=== PATIENT | male | born 1970 | race African-American/Black ===

== ENCOUNTER 2017-07-16 09:14 | Emergency (ER) | payer OTHER ==
[2017-07-16 09:26] VITALS: TEMP 98.1; BMI 26.6
[2017-07-16] MEDS ORDERED: SODIUM CHLORIDE 1,000 ML IV STA (09:42)
[2017-07-16] MEDS ORDERED: HYDROmorphone HCL CARPU-JECT 1 MG/1 ML DISP.SYRIN IVPB ONE (09:42)
[2017-07-16 09:56] LABS: BASOPHIL 1.3 % (0-2.0); EOSINOPHIL 3.1 % (0-4.5); MCH 28.3 pg (25.7-33.7); MEAN CELL VOLUME 85.7 fl (80-96); MEAN PLT VOLUME 6.7 fl (7.5-11.1); NEUTROPHILS 36.1 % (42.8-82.8); PLATELET COUNT 266 K/MM3 (134-434); RDW 13.9 % (11.9-15.9); WHITE BLOOD COUNT 4.7 K/mm3 (4.0-10.0)
[2017-07-16] MEDS ORDERED: HYDROmorphone HCL CARPU-JECT 1 MG/1 ML DISP.SYRIN ONE (10:06)
--- NOTE | 2017-07-16 10:11 | PDOC ---
History of Present Illness - General History Source: Patient Exam Limitations: No Limitations - History of Present Illness Initial Comments: 07/16/17 10:41 The patient is a 47 year old male, with a significant past medical history of Polymyositis who presents to the emergency department with worsening R flank pain for the past 2 days. Patient states reports constant, squeezing flank pain that radiates to his R axilla. Patient states his pain is exacerbated by positional changes, exertion and deep inspiration. Patient reports urinary frequency and dizziness. Patient denied taking any medications for relief and presents to the ED for further evaluation. He denies chest pain, headache or dizziness. He denies fever, chills, nausea, vomit, diarrhea or constipation. He denies dysuria, urgency or hematuria. Allergies: Naproxen Past surgical history: umbilical hernia, RIGHT HAND GANGLION CYST REMOVAL Social history: Current everyday smoker, occasional MJ use <Alondra Christianson - Last Filed: 07/16/17 12:01> - General History Source: Patient Exam Limitations: No Limitations <Paulie Bishop - Last Filed: 07/16/17 12:19> - General Chief Complaint: Pain Stated Complaint: PAIN Time Seen by Provider: 07/16/17 09:36 Past History <Alondra Christianson - Last Filed: 07/16/17 12:01> - Past Medical History Other medical history: Polymyositis - Surgical History Abdominal Surgery: Yes (UMBILICAL HERNIA) - Immunization History Immunization Up to Date: Yes - Suicide/Smoking/Psychosocial Hx Smoking Status: Yes Smoking History: Current every day smoker Number of Cigarettes Smoked Daily: 10 Information on smoking cessation initiated: No Hx Alcohol Use: No Drug/Substance Use Hx: No Substance Use Type: Marijuana <Paulie Bishop - Last Filed: 07/16/17 12:19> - Past Medical History Allergies/Adverse Reactions: Allergies Allergy/AdvReac Type Severity Reaction Status Date / Time naproxen sodium [From Aleve] Allergy Severe Swelling Verified 07/16/17 09:19 Home Medications: Ambulatory Orders Ibuprofen 800 mg PO TID #21 tablet MDD 3 11/11/16 Methocarbamol [Robaxin -] 500 mg PO BID PRN #14 tablet 07/16/17 Oxycodone HCl/Acetaminophen [Percocet 5-325 mg Tablet] 1 tab PO Q6H PRN #15 tablet MDD 4 07/16/17 Prednisone [Deltasone -] 60 mg PO DAILY #12 tablet 07/16/17 Review of Systems - Review of Systems Able to Perform ROS?: Yes Comments:: 07/16/17 10:42 GENERAL/CONSTITUTIONAL: No fever or chills. No weakness. HEAD, EYES, EARS, NOSE AND THROAT: No change in vision. No ear pain or discharge. No sore throat. CARDIOVASCULAR: No chest pain or shortness of breath. RESPIRATORY: No cough, wheezing, or hemoptysis. GASTROINTESTINAL: No nausea, vomiting, diarrhea or constipation. GENITOURINARY: +frequency. +L flank pain. No dysuria or change in urination. MUSCULOSKELETAL: No joint or muscle swelling or pain. No neck or back pain. SKIN: No rash NEUROLOGIC: No headache, vertigo, loss of consciousness, or change in strength/ sensation. ENDOCRINE: No increased thirst. No abnormal weight change. HEMATOLOGIC/LYMPHATIC: No anemia, easy bleeding, or history of blood clots. ALLERGIC/IMMUNOLOGIC: No hives or skin allergy. <Alondra Christianson - Last Filed: 07/16/17 12:01> *Physical Exam - Vital Signs Last Vital Signs Temp Pulse Resp BP Pulse Ox 98.1 F 73 15 139/95 99 07/16/17 09:21 07/16/17 09:21 07/16/17 09:21 07/16/17 09:21 07/16/17 09:21 - Physical Exam Comments: 07/16/17 10:42 GENERAL: Awake, alert, and fully oriented, in no acute distress. +uncomfortable appearing HEAD: No signs of trauma EYES: PERRLA, EOMI, sclera anicteric, conjunctiva clear ENT: Auricles normal inspection, hearing grossly normal, nares patent, oropharynx clear without exudates. Moist mucosa NECK: Normal ROM, supple, no lymphadenopathy, JVD, or masses LUNGS: Breath sounds equal, clear to auscultation bilaterally. No wheezes, and no crackles HEART: Regular rate and rhythm, normal S1 and S2, no murmurs, rubs or gallops ABDOMEN: +L CVA tenderness. +LLQ tenderness. Soft, nontender, normoactive bowel sounds. No guarding, no rebound. No masses EXTREMITIES: Normal range of motion, no edema. No clubbing or cyanosis. No cords, erythema, or tenderness NEUROLOGICAL: Cranial nerves II through XII grossly intact. Normal speech, normal gait SKIN: Warm, Dry, normal turgor, no rashes or lesions noted. <Alondra Christianson - Last Filed: 07/16/17 12:01> - Vital Signs Last Vital Signs Temp Pulse Resp BP Pulse Ox 98.1 F 73 15 139/95 99 07/16/17 09:21 07/16/17 09:21 07/16/17 09:21 07/16/17 09:21 07/16/17 09:21 <Paulie Bishop - Last Filed: 07/16/17 12:19> ED Treatment Course - LABORATORY CBC & Chemistry Diagram: 07/16/17 09:51 07/16/17 09:51 - ADDITIONAL ORDERS Additional order review: Laboratory Results 07/16/17 09:51 Sodium 142 Potassium 4.2 Chloride 110 H Carbon Dioxide 29 D Anion Gap 3 L BUN 10 Creatinine 1.0 Creat Clearance w eGFR > 60 Random Glucose 90 Calcium 8.6 Total Bilirubin 0.2 D AST 26 ALT 46 D Alkaline Phosphatase 104 Total Protein 6.9 Albumin 3.8 Lipase 100 07/16/17 09:51 RBC 5.07 MCV 85.7 MCHC 33.0 RDW 13.9 MPV 6.7 L Neutrophils % 36.1 L D Lymphocytes % 51.5 H Monocytes % 8.0 Eosinophils % 3.1 Basophils % 1.3 - Medications Given in the ED: ED Medications Discontinued Medications Generic Name Dose Route Start Last Admin Trade Name Freq PRN Reason Stop Dose Admin Hydromorphone HCl 1 mg 07/16/17 09:42 07/16/17 10:35 Dilaudid Injection - IVPB 07/16/17 09:43 1 mg ONCE ONE Administration Sodium Chloride 1,000 mls @ 1,000 mls/hr 07/16/17 09:42 07/16/17 10:37 Normal Saline - IV 07/16/17 10:41 1,000 mls/hr ASDIR STA Administration <Alondra Christianson - Last Filed: 07/16/17 12:01> - LABORATORY CBC & Chemistry Diagram: 07/16/17 09:51 07/16/17 09:51 - ADDITIONAL ORDERS Additional order review: 07/16/17 09:51 RBC 5.07 MCV 85.7 MCHC 33.0 RDW 13.9 MPV 6.7 L Neutrophils % 36.1 L D Lymphocytes % 51.5 H Monocytes % 8.0 Eosinophils % 3.1 Basophils % 1.3 - RADIOLOGY Radiology Studies Ordered: Category Date Time Status SPIRAL- RENAL-STONE CT [CT] Stat CT Scan 07/16/17 09:42 Ordered <Paulie Bishop - Last Filed: 07/16/17 12:19> Medical Decision Making - Medical Decision Making 07/16/17 12:[address] Impression: Both kidneys appear unremarkable without evidence of hydroureteronephrosis, renal or ureteral stone , bilaterally. A few diverticula in the sigmoid colon without evidence of acute diverticulitis. Correlate clinically to determine further evaluation and follow-up. Reported By: Ana María Granados MD <Alondra Christianson - Last Filed: 07/16/17 12:01> - Medical Decision Making 07/16/17 10:11 A portion of this note was documented by scribe services under my direction. I have reviewed the details of the note, within reason, and agree with the documentation with the following case summary and management plan written by me. Patient treated in the ED. Nursing notes are reviewed and incorporated into the medical decision-making. Vital signs reviewed. Peripheral IV access obtained by the nurse, laboratory studies are drawn and sent, reviewed and interpreted by myself. Vital Signs Temp Pulse Resp BP Pulse Ox 98.1 F 73 15 139/95 99 07/16/17 09:21 10 09:21 10 09:21 07/16/17 09:21 07/16/17 09:21 47-year-old male with past medical history of polymyositis presents to the emergency department department with left flank pain since yesterday. Patient denied fevers, chills, nausea, vomiting, diarrhea, dysuria, hematuria. Differential includes diverticulitis, renal colic, pyelonephritis, colitis. We' ll obtain labs, CAT scan, urinalysis and reassess. 07/16/17 12:07 CBC, BMP 07/16/17 09:51 10 09:51 CMP Sodium 142 mmol/L (136-145) 07/16/17 09:51 Potassium 4.2 mmol/L (3.5-5.1) 07/16/17 09:51 Chloride 110 mmol/L (98-107) H 07/16/17 09:51 Carbon Dioxide 29 mmol/L (21-32) D 07/16/17 09:51 Anion Gap 3 (8-16) L 07/16/17 09:51 BUN 10 mg/dL (7-18) 07/16/17 09:51 Creatinine 1.0 mg/dL (0.7-1.3) 07/16/17 09:51 Creat Clearance w eGFR > 60 (>60) 07/16/17 09:51 Random Glucose 90 mg/dL (74-106) 07/16/17 09:51 Calcium 8.6 mg/dL (8.5-10.1) 07/16/17 09:51 Total Bilirubin 0.2 mg/dL (0.2-1.0) D 07/16/17 09:51 AST 26 U/L (15-37) 07/16/17 09:51 ALT 46 U/L (12-78) D 07/16/17 09:51 Alkaline Phosphatase 104 U/L (45-117) 07/16/17 09:51 Total Protein 6.9 g/dl (6.4-8.2) 07/16/17 09:51 Albumin 3.8 g/dl (3.4-5.0) 07/16/17 09:51 Lipase 100 U/L (73-393) 07/16/17 09:51 Urine Test Results Urine Color Ltyellow 07/16/17 09:51 Urine Appearance Clear 07/16/17 09:51 Urine pH 6.0 (5.0-8.0) 07/16/17 09:51 Urine Protein Negative (NEGATIVE) 07/16/17 09:51 Urine Glucose (UA) Negative (NEGATIVE) 07/16/17 09:51 Urine Ketones Negative (NEGATIVE) 07/16/17 09:51 Urine Blood Negative (NEGATIVE) 07/16/17 09:51 Urine Nitrite Negative (NEGATIVE) 07/16/17 09:51 Urine Bilirubin Negative (NEGATIVE) 07/16/17 09:51 The CAT scan demonstrates no acute findings. Upon further reevaluation, the. That the patient may potentially be having muscle spasm. However, patient reports that given his condition, polymyositis, he typically feels generally weak that this this may be potentially an exacerbation. We'll trial medicine for pain, steroids, muscle relaxants have the patient follow-up with his doctor. Patient's significan other will drive the patient home. [facility] registry verified. No scheduled drug prescriptions. I discussed the physical exam findings, ancillary test results and final diagnoses with the patient. I answered all of the patient's questions. The patient was satisfied with the care received and felt comfortable with the discharge plan and treatment plan. The patient will call their primary care physician within 24 hours to arrange follow-up and will return to the Emergency Department with any new, persistant or worsening symptoms. <Paulie Bishop - Last Filed: 07/16/17 12:19> *DC/Admit/Observation/Transfer - Attestations Scribe Attestion: 07/16/17 10:42 Documentation prepared by Alondra Christianson, acting as medical staff coordinator for Paulie Bishop MD <Alondra Christianson - Last Filed: 07/16/17 12:01> - Discharge Dispostion Admit: No <Paulie Bishop - Last Filed: 07/16/17 12:19> Diagnosis at time of Disposition: Musculoskeletal pain - Discharge Dispostion Disposition: HOME Condition at time of disposition: Stable - Prescriptions Prescriptions: Prednisone [Deltasone -] 60 mg PO DAILY #12 tablet Oxycodone HCl/Acetaminophen [Percocet 5-325 mg Tablet] 1 tab PO Q6H PRN #15 tablet MDD 4 PRN Reason: Pain Methocarbamol [Robaxin -] 500 mg PO BID PRN #14 tablet PRN Reason: Muscle Spasm - Referrals Referrals: Frank Nicolas MD [Primary Care Provider] - - Patient Instructions Printed Discharge Instructions: DI for Low Back Pain, DI for Thoracic Back Pain Additional Instructions: Take the medications as prescribed. Do not drive while on this medication. It is very important that you follow up with your doctor this week. Your blood, urine, and CT scan shows no acute findings.
[2017-07-16 10:28] LABS: ALBUMIN 3.8 g/dl (3.4-5.0); ALK PHOS 104 U/L (45-117); ANION GAP 3 (8-16); BILIRUBIN,TOTAL 0.2 mg/dL (0.2-1.0); CALCIUM 8.6 mg/dL (8.5-10.1); CO2 29 mmol/L (21-32); GLUCOSE,RANDOM 90 mg/dL (74-106); SGOT/AST 26 U/L (15-37); SGPT/ALT 46 U/L (12-78); TOT PROT 6.9 g/dl (6.4-8.2)
[2017-07-16 10:45] LABS: URINE APPEARANCE CLEAR; URINE BILIRUBIN NEGATIVE (NEGATIVE); URINE BLOOD NEGATIVE (NEGATIVE); URINE COLOR LTYELLOW; URINE GLUCOSE (UA) NEGATIVE (NEGATIVE); URINE KETONE NEGATIVE (NEGATIVE); URINE LEUK ESTERASE NEGATIVE (NEGATIVE); URINE NITRITE NEGATIVE (NEGATIVE); URINE PROTEIN NEGATIVE (NEGATIVE); URINE UROBILINOGEN NEGATIVE mg/dL (0.2-1.0)
[2017-07-16] MEDS ORDERED: METHOCARBAMOL 500 MG TABLET PO ONE (11:49)
[2017-07-16] MEDS ORDERED: predniSONE 20 MG TABLET (UD) PO ONE (12:06)
[2017-07-16] MEDS ORDERED: METHOCARBAMOL 500 MG TABLET ONE (12:14)
[2017-07-16] MEDS ORDERED: predniSONE 20 MG TABLET (UD) ONE (12:14)
[2017-07-16 12:27] VITALS: BP 130/89; PULSE 89
== END 2017-07-16 12:32 | disposition home or self-care (01) ==
LOC: JER 09:14
PROC: 3E0337Z Introduction of Electrolytic and Water Balance Substance into Peripheral Vein, Percutaneous Approach (ICD-10-PCS; principal; 2017-07-16)
PROC: 3E033NZ Introduction of Analgesics, Hypnotics, Sedatives into Peripheral Vein, Percutaneous Approach (ICD-10-PCS; 2017-07-16)
DX: M33.20 Polymyositis, organ involvement unspecified (principal); F17.210 Nicotine dependence, cigarettes, uncomplicated
CPT/HCPCS: 36415; 74176; 80053; 81003; 83690; 85025; 87086; 96361; 96374; 99283-25

== ENCOUNTER 2019-06-03 12:02 | Emergency (ER) | payer OTHER ==
[2019-06-03 12:11] VITALS: BP 126/80; PULSE 73; TEMP 98.3; BMI 26.6
[2019-06-03 13:22] LABS: BASO % 0.9 % (0-2.0); EOS % 1.5 % (0-4.5); HEMATOCRIT 42.9 % (35.4-49); HEMOGLOBIN 14.5 GM/dL (11.7-16.9); LYMPH % 47.7 % (8-40); MCH 29.4 pg (25.7-33.7); MCHC 33.7 g/dl (32.0-35.9); MEAN CELL VOLUME 87.1 fl (80-96); MEAN PLT VOLUME 6.9 fl (7.5-11.1); MONO % 7.3 % (3.8-10.2); NEUT % 42.6 % (42.8-82.8); PLATELET COUNT 272 K/MM3 (134-434); RBC 4.92 M/mm3 (4.00-5.60); RDW 13.7 % (11.9-15.9); WHITE BLOOD COUNT 5.8 K/mm3 (4.0-10.0)
--- NOTE | 2019-06-03 13:30 | PDOC ---
Documentation entered by Donya Colvin SCRIBE, acting as scribe for Tawanna Pham MD. Tawanna Pham MD: This documentation has been prepared by the scribe, Donya Colvin SCRIBE, under my direction and personally reviewed by me in its entirety. I confirm that the documentation accurately reflects all work, treatment, procedures, and medical decision making performed by me. History of Present Illness - General Chief Complaint: RX Refill Stated Complaint: RX REFILL Time Seen by Provider: 06/03/19 12:33 History Source: Patient Exam Limitations: No Limitations - History of Present Illness Initial Comments: 06/03/19 13:35 The patient is a 49-year-old male, with a past medical history of hyperthyroidism and polymyositis, smoker who presents to the ED with 1 month of throat/neck swelling, sweats and palpitations. The patient states that he ran out of his thyroid medication back in October and has not been able to refill his prescription due to insurance issues. He was taking methimazole 20 mg daily , off of meds for 8 months. He reports that in the past week the palpitations and sweats have been progressively worsening. He also reports experiencing chronic muscle aches in his B/L LE, neck, and back, chest pain, leg pains and aches due to his polymyositis. Denies trauma Denies infectious symptoms such as fever, chills, cough or congestion. The patient denies any fevers, chills, nausea, vomiting, diarrhea, or abdominal pain. No shortness of breath or respiratory distress. Denies any headache, weakness, dizziness, lightheadedness, or changes in strength or sensation. Allergies: Naproxen sodium PCP: Dr Smart 06/03/19 13:47 06/03/19 13:49 06/03/19 13:50 Past History - Past Medical History Allergies/Adverse Reactions: Allergies Allergy/AdvReac Type Severity Reaction Status Date / Time naproxen sodium [From Aleve] Allergy Severe Swelling Verified 03/28/18 09:30 COPD: No Other medical history: Polymyositis - Surgical History Abdominal Surgery: Yes (UMBILICAL HERNIA) - Immunization History Immunization Up to Date: Yes - Suicide/Smoking/Psychosocial Hx Smoking Status: Yes Smoking History: Current every day smoker Have you smoked in the past 12 months: Yes Number of Cigarettes Smoked Daily: 7 Information on smoking cessation initiated: Yes 'Breaking Loose' booklet given: 03/28/18 Hx Alcohol Use: No Drug/Substance Use Hx: Yes ([place]) Substance Use Type: Marijuana Review of Systems - Review of Systems Able to Perform ROS?: Yes Comments:: 06/03/19 13:37 GENERAL/CONSTITUTIONAL: (+)Sweats. No fever or chills. No weakness. HEAD, EYES, EARS, NOSE AND THROAT: (+)Neck and throat swelling. No change in vision or hearing. No ear pain or discharge. No mouth pain. No difficulty swallowing. No congestion. CARDIOVASCULAR: (+)Palpitations. +chest pain. No syncope or edema. RESPIRATORY: No SOB, cough, wheezing GASTROINTESTINAL No nausea/vomiting. No diarrhea or constipation. No abdominal pain. GENITOURINARY: No hematuria, dysuria, frequency, urgency or other changes. MUSCULOSKELETAL: (+)Neck pain, back pain, muscle aches/myalgias, leg pain. No joint swelling or pain. No decreased range of motion. SKIN: No rash or changes in skin color or lesions. No wounds. NEUROLOGIC: alert and oriented appropriately No headache, dizziness, loss of consciousness, or change in strength/sensation. No gait instability. HEMATOLOGIC/LYMPHATIC: No anemia, easy bruising/bleeding, or history of blood clots. ALLERGIC/IMMUNOLOGIC: Naproxen allergy PSYCH: no anxiety/depression All other systems reviewed and negative, or as documented in HPI. 06/03/19 13:48 06/03/19 14:57 *Physical Exam - Vital Signs Last Vital Signs Temp Pulse Resp BP Pulse Ox 98.3 F 73 20 126/80 100 06/03/19 12:06 06/03/19 12:06 06/03/19 12:06 06/03/19 12:06 06/03/19 12:06 - Physical Exam Comments: 06/03/19 13:40 General: Well appearing, awake and alert, NAD. HEENT: NCAT, PERRL, EOMI, clear conjunctiva, anicteric, moist mucous membranes , clear oropharynx, no oral lesions.. normal phonation, speaking full sentences. uvula midline, airway intact. Neck: neck supple, FROM, no palp masses or thyromegaly. Resp: CTAB, normal and even respirations, no respiratory distress CVS: RRR, no murmurs, 2+ peripheral pulses throughout, no peripheral edema Abdomen: soft, NTND, no rebound or guarding. No CVAT. Back: nontender, normal inspection and ROM MSK: no edema, VENEGAS x4, ROM intact. No clubbing or cyanosis. normal bulk and tone. Extremities: no calf tenderness Neuro: alert, oriented appropriately; no focal neurologic deficits, gait stable. Skin: warm and well perfused, cap refill <2 sec, normal color 06/03/19 13:49 Heart Score/ECG Review #1 ECG reviewed & interpreted by me at: 13:35 General ECG Interpretation: Sinus Rhythm, Normal Rate, Normal Intervals, No acute ischemic changes Compared to previous ECG there are: No significant change 06/03/19 13:51 EKG normal sinus rhythm at 71 bpm, no interval abnormalities, narrow QRS, ST and T wave segments and morphology normal. ED Treatment Course - LABORATORY CBC & Chemistry Diagram: 06/03/19 13:10 06/03/19 13:10 Medical Decision Making - Medical Decision Making 06/03/19 13:50 See HPI for details. Prior notes reviewed, including admissions, discharges and consultations. Vital signs reviewed, wnl. Vital Signs Temp Pulse Resp BP Pulse Ox 98.3 F 73 20 126/80 100 06/03/19 12:06 06/03/19 12:06 06/03/19 12:06 06/03/19 12:06 06/03/19 12:06 laboratory results and imaging reviewed, basic labs and lytes wnl, reassuring. TSH/thyroid panel with normal TSH, free levels. Cardiac panel_normal/neg, doubt cardiac etiology. CK level mildly elevated 800s , but does not appear to be in rhabdo. underlying polymyositis with elevated CK levels at baseline. EKG normal sinus rhythm at 71 bpm, no interval abnormalities, narrow QRS, ST and T wave segments and morphology normal. unchanged. ED course - no events. VS normal labs and results reviewed, needs f/u PMD, so provided referrals ambulatory in department, chronic pain from his polymyositis, no other significant derangements. c/o neck pain, back pain, but has preserved ROM as he demonstrates his neck pain airway intact, breathing comfortably, no airway involvement or obstruction no infectious s/s, nontoxic appearing. needs thyroid recheck and may not need medication if results remain normal. told he may not need this medication with normal levels, pt requested held off on rx for methimazole with side effects and normal screening thyroid panel. information provided, but pt was dissatisfied with care. has had chronic sx x 1 month at least and received throughout check and workup here with unremarkable findings aside from CK level being elevated which could reflect his polymyositis. appt/PMD referrals made. outpatient testing and ultrasound of thyroid if necessary. pmd can resume meds if necessary for his hyperthyroid state, but findings are not reflective with normal thyroid panel. Pt to be discharged in stable condition. Patient made aware of clinical impression, treatment recommendations and disposition plan, return precautions discussed (including but not limited to new or persistent/worsening symptoms, pain, fevers, or signs of infection, chest pain, respiratory distress, inability to tolerate oral intake, dehydration, syncope, or neurologic changes) . Follow up with PMD as recommended Dr Llanes for 06/04/19, follow up information provided, take medications as instructed for duration of time. continue with supportive care, avoid triggers and precipitants. All questions answered to patient's satisfaction and expressed understanding and comfort with this. At the time of discharge, the patient is alert, clinically improved, tolerating po and verbalizes understanding of instructions, satisfied with the care received and felt comfortable with the plan. Patient does not suffer from an acute life-threatening medical condition at this time and is safe for outpatient follow-up. 06/03/19 14:52 *DC/Admit/Observation/Transfer Diagnosis at time of Disposition: Myalgia - Discharge Dispostion Disposition: HOME Condition at time of disposition: Good Decision to Admit order: No - Referrals Referrals: David Smart [Primary Care Provider] - Joni Roy MD [Staff Physician] - Hailee Armstrong MD [Staff Physician] - [facility] [place] [Provider Group] [facility] [Provider Group] - Patient Instructions Printed Discharge Instructions: Polymyositis, DI for Musculoskeletal Pain Additional Instructions: 1) Please follow-up with your primary care doctor in the next 1-2 days. Please call tomorrow for for any urgent issues. you should follow up with the referrals given for you With clinic, Dr Llanes for 06/04/19 you should also follow up on the rest of your thyroid testing is normal today but you should get checked and see if you need those medications for your thyroid.. 2) You were given a copy of the tests performed today. Please bring the results with you and review them with your primary care doctor. Your laboratory / results were normal, including EKG and enzymes and electrolytes your muscle enzymes were elevated which could be from your polymyositis. 3) If you have any worsening of symptoms or any other concerns please return to the ED immediately. Return if worsening symptoms including fevers, headache, vomiting, visual or hearing disturbances, abdominal pain, chest pain, shortness of breath, syncope, dehydration, inability to take things by mouth/vomiting, altered mental status, or worsening concerning symptoms. - Post Discharge Activity
[2019-06-03 14:05] LABS: ALBUMIN 3.8 g/dl (3.4-5.0); BILIRUBIN,TOTAL 0.2 mg/dL (0.2-1); BLOOD UREA NITROGEN 16.3 mg/dL (7-18); CALCIUM 9.3 mg/dL (8.5-10.1); TOT PROT 6.9 g/dl (6.4-8.2)
--- NOTE | 2019-06-03 15:50 | EKG ---
Test Reason : Blood Pressure : / mmHG Vent. Rate : 071 BPM Atrial Rate : 071 BPM P-R Int : 128 ms QRS Dur : 086 ms QT Int : 398 ms P-R-T Axes : 011 054 042 degrees QTc Int : 432 ms NORMAL SINUS RHYTHM WITH SINUS ARRHYTHMIA NORMAL ECG WHEN COMPARED WITH ECG OF 11-NOV-2016 10:34, NO SIGNIFICANT CHANGE WAS FOUND Confirmed by MD WALESKA, ABDULLAHI ([id number]) on 06/03/2019 3:50:33 PM Referred By: Confirmed By:ABDULLAHI GALEANO MD
== END 2019-06-03 14:41 | disposition home or self-care (01) ==
LOC: JER 12:02
DX: M79.10 Myalgia, unspecified site (principal); M33.20 Polymyositis, organ involvement unspecified; E05.90 Thyrotoxicosis, unspecified without thyrotoxic crisis or storm; F17.210 Nicotine dependence, cigarettes, uncomplicated
CPT/HCPCS: 36415; 80053; 82550; 82553; 84436; 84439; 84443; 84484; 85025; 93005; 93010; 99283-25

== ENCOUNTER 2019-08-25 15:39 | Emergency (ER) | payer OTHER ==
[2019-08-25 15:56] VITALS: BP 107/61; PULSE 94; TEMP 98.7; BMI 25.8
[2019-08-25] MEDS ORDERED: diphenhydrAMINE HCL 25 MG CAPSULE (FP) PO ONE ×2 (15:57→16:42)
[2019-08-25] MEDS ORDERED: DEXAMETHASONE LIQUID 0.5 MG/5 ML PO ONE (15:57)
[2019-08-25] MEDS ORDERED: RANITIDINE HCL 150 MG/10 ML UNIT-DOSE PO ONE (15:58)
--- NOTE | 2019-08-25 15:58 | PDOC ---
Rapid Medical Evaluation Time Seen by Provider: 08/25/19 15:52 Medical Evaluation: Allergies Allergy/AdvReac Type Severity Reaction Status Date / Time naproxen sodium [From Aleve] Allergy Severe Swelling Verified 03/28/18 09:30 08/25/19 15:52 Pt presents to the ER for evaluation of an allergic reaction. States he is allergic to yeast and he ate the carrot cake with yeast yesterday. Now he is complaining of itching to his L hand and L foot. States his lips are itchy and throat feels tight. Did not eat the cake today Exam: Air way open clear maintained, No stridor. Rash to L hand Orders: benadryl, decadron, zantac Pt to proceed to the ER for further evaluation Discharge Disposition - Diagnosis Allergic Qualifiers: Encounter type: initial encounter Qualified Code(s): T78.40XA - Allergy, unspecified, initial encounter - Referrals - Patient Instructions - Post Discharge Activity
--- NOTE | 2019-08-25 16:39 | PDOC ---
History of Present Illness - General Chief Complaint: Allergic Reaction Stated Complaint: ALLERGIC REACTION Time Seen by Provider: 08/25/19 15:52 - History of Present Illness Initial Comments: 08/25/19 16:37 49-year-old male with out comorbidities presents for evaluation after eating yeast yesterday. He states he has an allergic reaction to yeast he has developed a rash and he feels tightness in his throat Past History - Past Medical History Allergies/Adverse Reactions: Allergies Allergy/AdvReac Type Severity Reaction Status Date / Time naproxen sodium [From Aleve] Allergy Severe Swelling Verified 03/28/18 09:30 Yeast Allergy Verified 08/25/19 15:56 COPD: No Thyroid Disease: Yes (HYPER) Other medical history: POLYMYOCITIS - Surgical History Abdominal Surgery: Yes (UMBILICAL HERNIA) - Immunization History Immunization Up to Date: Yes - Psycho Social/Smoking Cessation Hx Smoking Status: Yes Smoking History: Current every day smoker Have you smoked in the past 12 months: Yes Number of Cigarettes Smoked Daily: 5 Information on smoking cessation initiated: No 'Breaking Loose' booklet given: 03/28/18 Hx Alcohol Use: No Drug/Substance Use Hx: Yes Substance Use Type: Marijuana Review of Systems - Review of Systems Integumentary: Yes: Pruritus, Rash *Physical Exam - Vital Signs Last Vital Signs Temp Pulse Resp BP Pulse Ox 98.7 F 94 H 16 107/61 99 08/25/19 15:50 08/25/19 15:50 08/25/19 15:50 08/25/19 15:50 08/25/19 15:50 - Physical Exam Comments: 08/25/19 16:37 GENERAL: The patient is awake, alert, and fully oriented, in no acute distress. HEAD: Normal with no signs of trauma. EYES: sclera anicteric, conjunctiva clear. ENT: Ears normal NECK: Normal range of motion LUNGS: Breath sounds equal, clear to auscultation bilaterally. No wheezes, and no crackles. HEART: S1 and S2 without murmur, rub or gallop. ABDOMEN: Soft, nontender, normoactive bowel sounds. No guarding, no rebound. No masses. EXTREMITIES: Normal range of motion, no edema. No clubbing or cyanosis. No cords, erythema, or tenderness. NEUROLOGICAL: Cranial nerves II through XII grossly intact. Normal speech, normal gait. PSYCH: Normal mood, normal affect. SKIN: Warm, Dry, normal turgor, There is a raised wheal on the dorsum of the left hand Medical Decision Making - Medical Decision Making 08/25/19 16:37 Besides the raised we will patient states he has rashes on his feet. These were not visualized. The examination did not go well at some point he reviews the examination. No respiratory distress his lungs are clear no erythema or swelling of the throat or oropharynx. I will treat and discharge this patient with close follow-up instructions Discharge - Discharge Information Problems reviewed: Yes Clinical Impression/Diagnosis: Allergic Qualifiers: Encounter type: initial encounter Qualified Code(s): T78.40XA - Allergy, unspecified, initial encounter Condition: Stable Disposition: HOME - Admission No - Follow up/Referral Referrals: Zoila Doe MD [Staff Physician] - - Patient Discharge Instructions Patient Printed Discharge Instructions: Food Allergy, DI for Food Allergy Additional Instructions: You may continue with Benadryl for itching. You were treated with a long- acting steroid in the emergency room which should suppress her allergic reaction. Return to the emergency room for worsening symptoms and without fail please follow-up with internal medicine in 1 to 2 days for further evaluation and treatment options. - Post Discharge Activity
[2019-08-25] MEDS ORDERED: FAMOTIDINE 10 MG TABLET PO ONE (16:40)
[2019-08-25] MEDS ORDERED: DEXAMETHASONE SOD PHOSPHATE 10 MG/1 ML VIAL ONE (16:41)
--- NOTE | 2019-08-25 18:27 | PDOC ---
Documentation entered by Ju Kang SCRIBE, acting as scribe for Sarah Keating MD. Sarah Keating MD: This documentation has been prepared by the Pearl faustin Nirvannie, SCRIBE, under my direction and personally reviewed by me in its entirety. I confirm that the documentation accurately reflects all work, treatment, procedures, and medical decision making performed by me. Attending Attestation - Resident Resident Name: Manny Carlos - ED Attending Attestation I have performed the following: I have examined & evaluated the patient, The case was reviewed & discussed with the resident, I agree w/resident's findings & plan - HPI HPI: 08/25/19 18:27 this 49 year old with mild allergic reaction ,no respiratory symptoms,no distress,only a few lesions on his hand and rt big toe Pt said he had sores in his mouth but none where seen 08/25/19 18:28 - Physicial Exam PE: 08/25/19 18:[address] Manny Carlos's physical exam - Medical Decision Making 08/25/19 18:27 pt has a mild allergic reaction that will be treated with steroids and d/c home. No mucosal involvement ,no bulla,no desquamation 08/25/19 18:31
--- NOTE | 2019-08-25 18:27 | PDOC ---
History of Present Illness - General Chief Complaint: Allergic Reaction Stated Complaint: ALLERGIC REACTION Time Seen by Provider: 08/25/19 15:52 - History of Present Illness Initial Comments: 08/25/19 18:27 Pt is a 49 y/o M with a significant past medical history of polymyositis and hyperthryoidism who presents to our emergency Department due to an allergic reaction to yeast. Pt endorses that he consumed carrot cake the other day which may have had yeast in it. Pt endorses feeling soreness in his mouth, erythema and pain in his left hand (thenar eminence) as well as pain under his large toe on his right foot. Endorses he experienced similar symptoms a few years ago where he sought treatment at [facility]. 08/25/19 18:29 Past History - Past Medical History Allergies/Adverse Reactions: Allergies Allergy/AdvReac Type Severity Reaction Status Date / Time naproxen sodium [From Aleve] Allergy Severe Swelling Verified 03/28/18 09:30 Yeast Allergy Verified 08/25/19 15:56 Home Medications: Ambulatory Orders Prednisone [Prednisone 50 MG TABLETS] 50 mg PO DAILY #5 tablet 08/25/19 COPD: No Thyroid Disease: Yes (HYPER) Other medical history: POLYMYOCITIS - Surgical History Abdominal Surgery: Yes (UMBILICAL HERNIA) - Immunization History Immunization Up to Date: Yes - Psycho Social/Smoking Cessation Hx Smoking Status: Yes Smoking History: Current every day smoker Have you smoked in the past 12 months: Yes Number of Cigarettes Smoked Daily: 5 Information on smoking cessation initiated: No 'Breaking Loose' booklet given: 03/28/18 Hx Alcohol Use: No Drug/Substance Use Hx: Yes Substance Use Type: Marijuana Review of Systems - Review of Systems Constitutional: No: Chills, Diaphoresis, Fever HEENTM: No: Blurred Vision, Tearing, Double Vision Respiratory: No: Cough, Shortness of Breath, Wheezing Cardiac (ROS): No: Chest Pain, Irregular Heart Rate, Chest Tightness ABD/GI: No: Constipated, Diarrhea, Nausea, Vomiting : No: Burning, Dysuria Musculoskeletal: Yes: Joint Pain. No: Back Pain, Joint Swelling Integumentary: Yes: Lesions, Rash Neurological: No: Headache, Numbness, Weakness *Physical Exam - Vital Signs Last Vital Signs Temp Pulse Resp BP Pulse Ox 98.7 F 94 H 16 107/61 99 11/11/19 15:50 08/25/19 15:50 08/25/19 15:50 08/25/19 15:50 08/25/19 15:50 - Physical Exam Comments: 08/25/19 18:34 AAOx3, no acute distress EOMI, Sclera Clear. MMM, discoloration upper and lower lips. No tonsilar exudates. No cervical lymphadenopathy. CTA b/l, no rashes or lesions appreciated on chest wall or back RRR s1s2 NDNT Erythema left hand thenar eminence. Full ROM. No significant pedal edema ED Treatment Course - Medications Given in the ED: ED Medications Discontinued Medications Generic Name Dose Route Start Last Admin Trade Name Freq PRN Reason Stop Dose Admin Dexamethasone 10 mg 08/25/19 15:57 08/25/19 16:46 Decadron Liquid - PO 08/25/19 15:58 10 mg ONCE ONE Administration Diphenhydramine HCl 50 mg 08/25/19 15:57 08/25/19 16:46 Benadryl - PO 08/25/19 15:58 50 mg ONCE ONE Administration Famotidine 10 mg 08/25/19 16:40 08/25/19 16:46 Acid Aircraft Refueler PO 08/25/19 16:41 10 mg ONCE ONE Administration Ranitidine HCl 150 mg 08/25/19 15:58 08/25/19 16:47 Zantac Oral Solution - PO 08/25/19 15:59 Not Given ONCE ONE Medical Decision Making - Medical Decision Making 08/25/19 18:36 Pt is a49 y/o M pmh polymyositis and hyperthyroidism presents to our ED due to a reported allergic reaction to yeast after eating carrot cake x 1 day ago. Pt claims to have a yeast however description of symptoms are inconsistent with true allergic reaction or anaphylaxis. PE: on significant for 2 small lesions on hand and foot. No airway involvement, no laryngeal edema and no mucosal lesions. Pt given decadron 10 and Benadryl 50 with good relief of symptoms. Will d/c patient home on Prednisone 50 daily x 5 days. Discharge - Discharge Information Clinical Impression/Diagnosis: Allergic Qualifiers: Encounter type: initial encounter Qualified Code(s): T78.40XA - Allergy, unspecified, initial encounter Condition: Stable Disposition: HOME - Additional Discharge Information Prescriptions: Prednisone [Prednisone 50 MG TABLETS] 50 mg PO DAILY #5 tablet - Follow up/Referral Referrals: Luz Jara MD [Staff Physician] - Zoila Doe MD [Staff Physician] - - Patient Discharge Instructions Patient Printed Discharge Instructions: Food Allergy, DI for Food Allergy Additional Instructions: You may continue with Benadryl for itching. You were treated with a long- acting steroid in the emergency room which should suppress her allergic reaction. Return to the emergency room for worsening symptoms and without fail please follow-up with internal medicine in 1 to 2 days for further evaluation and treatment options. Steroid medication was sent to your pharmacy at [place], [place]. Please take this as prescribed. Please follow up with a spray drier(skin doctor) within 1 week. A referral has been provided for you in your discharge papers. please return to the emergency department immediately if you begin to experience shortness of breath, chest pain, worsening skin discoloration, fever , chills, or any other abnormal symptoms. - Post Discharge Activity
== END 2019-08-25 19:00 | disposition home or self-care (01) ==
LOC: JER 15:39 → JERFT 15:39 → JER 19:00
DX: T78.1XXA Other adverse food reactions, not elsewhere classified, initial encounter (principal); L27.2 Dermatitis due to ingested food; X58.XXXA Exposure to other specified factors, initial encounter; Z91.02 Food additives allergy status; Z88.8 Allergy status to other drugs, medicaments and biological substances
CPT/HCPCS: 99281-25

== ENCOUNTER 2020-09-26 14:42 | Emergency (ER) | payer OTHER ==
[2020-09-26 14:56] VITALS: BP 124/80; PULSE 66; TEMP 97; BMI 27.3
[2020-09-26] MEDS ORDERED: DIPHTH,PERTUSS(ACELL),TET 0.5 ML DISP.SYRIN IM ONE ×2 (16:32→17:09)
[2020-09-26] MEDS ORDERED: PREGABALIN 25 MG CAPSULE PO ONE (16:35)
== END 2020-09-26 17:23 | disposition home or self-care (01) ==
LOC: JER 14:42
PROC: 0HQGXZZ Repair Left Hand Skin, External Approach (ICD-10-PCS; principal; 2020-09-26)
PROC: 3E0234Z Introduction of Serum, Toxoid and Vaccine into Muscle, Percutaneous Approach (ICD-10-PCS; 2020-09-26)
DX: S61.215A Laceration without foreign body of left ring finger without damage to nail, initial encounter (principal)
CPT/HCPCS: 73140-TC-LT-FY; 90715; 99284-25

== ENCOUNTER 2020-10-12 10:14 | Emergency (ER) | payer OTHER ==
[2020-10-12 10:30] VITALS: BP 122/80; PULSE 74; TEMP 98.4; BMI 25.8
== END 2020-10-12 10:54 | disposition home or self-care (01) ==
LOC: JERFT 10:14
DX: Z48.02 Encounter for removal of sutures (principal)
CPT/HCPCS: 99281-25

== ENCOUNTER 2023-05-31 06:51 | Emergency (ER) | payer OTHER ==
[2023-05-31 06:55] VITALS: BP 138/92; PULSE 89; RESP 18; TEMP 98.4; BMI 28.7
[2023-05-31] MEDS ORDERED: DIPHTH,PERTUSS(ACELL),TET 0.5 ML DISP.SYRIN IM ONE ×2 (07:30→07:34)
[2023-05-31] MEDS ORDERED: ACETAMINOPHEN 325 MG TABLET (FP) PO ONE ×2 (07:31→07:41)
[2023-05-31] MEDS ORDERED: LIDOCAINE 5% TOPICAL PATCH TP ONE (07:32)
[2023-05-31] MEDS ORDERED: LIDOCAINE 5% TOPICAL PATCH ONE (07:44)
[2023-05-31] MEDS ORDERED: ACETAMINOPHEN 325 MG TABLET (FP) ONE ×2 (07:44→07:47)
[2023-05-31] MEDS ORDERED: BACITRACIN ZINC 15 GM TUBE TOPICAL OINTMENT TP ONE (07:56)
[2023-05-31] MEDS ORDERED: BACITRACIN ZINC 15 GM TUBE TOPICAL OINTMENT ONE (08:22)
[2023-05-31] MEDS ORDERED: LIDOCAINE PATCH REMOVAL MC SCH (22:00)
== END 2023-05-31 08:59 | disposition home or self-care (01) ==
LOC: JER 06:51
PROC: 3E0234Z Introduction of Serum, Toxoid and Vaccine into Muscle, Percutaneous Approach (ICD-10-PCS; principal; 2023-05-31)
DX: R22.32 Localized swelling, mass and lump, left upper limb (principal); M79.642 Pain in left hand; M25.522 Pain in left elbow; Y04.0XXA Assault by unarmed brawl or fight, initial encounter
CPT/HCPCS: 73070-TC-LT-FY; 73110-TC-LT-FY; 73130-TC-LT-FY; 90471; 90715; 99283-25

== ENCOUNTER 2023-11-30 11:59 | Emergency (ER) | payer OTHER ==
[2023-11-30 12:16] VITALS: TEMP 98.6; BMI 26.6
[2023-11-30] MEDS ORDERED: ACETAMINOPHEN 325 MG TABLET (FP) ONE (13:14)
[2023-11-30] MEDS ORDERED: LIDOCAINE 4% PATCH TP ONE (13:15)
[2023-11-30] MEDS: ACETAMINOPHEN 500 MG TABLET (FP) PO ONE (13:26)
[2023-11-30] MEDS: LIDOCAINE 4% PATCH TP ONE (13:26)
[2023-11-30 16:05] VITALS: BP 133/91; PULSE 68; RESP 18
[2023-11-30] MEDS ORDERED: LIDOCAINE PATCH REMOVAL MC SCH (22:00)
== END 2023-11-30 16:07 | disposition home or self-care (01) ==
LOC: JER 11:59
DX: M79.605 Pain in left leg (principal); M54.42 Lumbago with sciatica, left side
CPT/HCPCS: 73502-TC-LT-FY; 99283-25

== ENCOUNTER 2025-01-27 23:55 | Emergency (ER) | payer OTHER ==
[2025-01-28] VITALS: BP 117/95; PULSE 70; RESP 18; TEMP 97.5; BMI 28.1
[2025-01-28] MEDS ORDERED: ACETAMINOPHEN 325 MG TABLET (FP) ONE (00:50)
[2025-01-28] MEDS ORDERED: DEXAMETHASONE SOD PHOSPHATE 10 MG/1 ML VIAL ONE (00:50)
[2025-01-28] MEDS: ACETAMINOPHEN 325 MG TABLET (FP) PO ONE (00:57)
[2025-01-28] MEDS: DEXAMETHASONE SOD PHOSPHATE 10 MG/1 ML VIAL IM ONE (00:57)
== END 2025-01-28 01:20 | disposition home or self-care (01) ==
LOC: JER 23:55
PROC: 3E023GC Introduction of Other Therapeutic Substance into Muscle, Percutaneous Approach (ICD-10-PCS; principal; 2025-01-28)
DX: M79.621 Pain in right upper arm (principal)
CPT/HCPCS: 99284-25; J1100